=== PATIENT | male | born 1960 | race Caucasian/White ===

== ENCOUNTER 2022-02-21 19:54 | Emergency (ER) | payer OTHER ==
[~2022-02-21] VITALS: Ht 170.2 cm; Wt 74.8 kg
[2022-02-21 20:40] VITALS: BP 135/77
--- NOTE | 2022-02-21 20:57 | NUR ---
PT AMBUALTED TO BED 7
--- NOTE | 2022-02-21 21:05 | NUR ---
62/M BIB SELF C/O HEMATURIA X1DAY. PATIENT DENIES PAIN, BURNING, FREQUENCY, SOB, CP, NAUSEA, VOMITING, DIARRHEA AT THIS TIME. PMHX DENIES MEDS DENIES NKA
--- NOTE | 2022-02-21 21:06 | NUR ---
PATIENT AMBULATED TO THE RR
--- NOTE | 2022-02-21 21:07 | NUR ---
URINE COLLECTED AND DIP TEST DONE
--- NOTE | 2022-02-21 21:08 | NUR ---
PATIENT AMBULATED TO BED 7 FROM THE RR
--- NOTE | 2022-02-21 21:14 | NUR ---
MD DUFFY AT BEDSIDE ASSESSING PATIENT
[2022-02-21] MEDS ORDERED: CIPR500T4 PO (21:23)
--- NOTE | 2022-02-21 21:30 | NUR ---
DR. DUFFY AT BEDSIDE
--- NOTE | 2022-02-21 21:36 | NUR ---
Patient discharged with v/s stable. Written and verbal after care instructions given on UTI/Hematuria and explained. Patient alert, oriented and verbalized understanding of instructions. Ambulatory with steady gait. All questions addressed prior to discharge. ID band removed. Patient advised to follow up with PMD. Rx of Ciprofloxacin given.
== END 2022-02-21 21:36 | disposition home or self-care (01) ==
LOC: MED 19:54
DX: N39.0 Urinary tract infection, site not specified (principal); R31.9 Hematuria, unspecified; F17.210 Nicotine dependence, cigarettes, uncomplicated; Z79.2 Long term (current) use of antibiotics
CPT/HCPCS: 81002; 99283

== ENCOUNTER 2023-11-06 18:07 | Emergency (ER) | payer OTHER ==
[~2023-11-06] VITALS: Ht 170.2 cm; Wt 83.5 kg
[~2023-11-06 18:07] MED LIST: CIPR500T4 PO
[2023-11-06 18:37] VITALS: BP 103/73; PULSE 97; RESP 20; TEMP 97.2; O2SAT 97
[2023-11-06 19:45] LABS: BASOPHILS % (AUTO) 0.4 % (0.0-2.0); EOSINOPHILS % (AUTO) 0.3 % (0.0-4.0); HEMATOCRIT 45.6 % (36-52); HEMOGLOBIN 15.8 g/dL (12.0-18.0); LYMPHOCYTES # (AUTO) 0.7 K/uL (2.0-11.5); LYMPHOCYTES % (AUTO) 13.6 % (20.5-51.1); MEAN CORPUSCULAR HEMOGLOBIN 31 pg (27-31); MEAN CORPUSCULAR HGB CONC 35 g/dL (33-37); MEAN CORPUSCULAR VOLUME 90.7 fL (80-94); MONOCYTES # (AUTO) 0.9 K/uL (0.8-1.0); MONOCYTES % (AUTO) 15.9 % (1.7-9.3); NEUTROPHILS # (AUTO) 3.8 K/uL (1.8-7.7); NEUTROPHILS % (AUTO) 69.8 % (42.2-75.2); PLATELET COUNT (AUTO) 229 K/uL (140-450); RED BLOOD CELL COUNT(AUTO) 5.03 MIL/uL (4.20-6.10); RED CELL DISTRIBUTION WIDTH 13.6 % (11.6-13.7); WHITE BLOOD COUNT (AUTO) 5.5 K/uL (4.8-10.8)
[2023-11-06 20:26] LABS: ALBUMIN 3.5 g/dL (3.4-5.0); ANION GAP 12.6 (8-16); CALCIUM 8.7 mg/dL (8.5-10.1); CARBON DIOXIDE 25.5 mmol/L (21-32); CREATININE 0.9 mg/dL (0.6-1.3); POTASSIUM 4.1 mmol/L (3.5-5.1); TOTAL BILIRUBIN 0.4 mg/dL (0.0-1.0); TOTAL PROTEIN, SERUM 7.8 g/dL (6.4-8.2)
[2023-11-06 20:29] LABS: APPEARANCE,URINE CLEAR (CLEAR); BILIRUBIN,URINE NEGATIVE (NEGATIVE); BLOOD, URINE NEGATIVE (NEGATIVE); COLOR,URINE YELLOW (YELLOW); LEUKOCYTE ESTERASE ,URINE NEGATIVE (NEGATIVE); NITRITE, URINE NEGATIVE (NEGATIVE); PROTEIN,URINE NEGATIVE (NEGATIVE); UGLUCOSE NEGATIVE (NEGATIVE); UROBILINOGEN,URINE 0.2 EU/dL (0.2 - 1)
[2023-11-06] MEDS ORDERED: EMLAC TP (20:48)
[2023-11-06] MEDS ORDERED: CYCL-711 PO (20:48)
[2023-11-06] MEDS ORDERED: IBUP-1842 PO (20:48)
== END 2023-11-06 20:56 | disposition home or self-care (01) ==
LOC: MED 18:07
DX: M25.552 Pain in left hip (principal); Z79.2 Long term (current) use of antibiotics
CPT/HCPCS: 36415; 80053; 81003; 83690; 85025; 99283